=== PATIENT | male | born 1990 | race Caucasian/White ===

== ENCOUNTER 2024-08-04 07:12 | Outpatient (CLI) | payer OTHER ==
--- NOTE | 2024-08-06 09:14 | MRI Report ---
PROCEDURE: Shoulder RT WO INDICATIONS: SHOULDER PAIN TECHNIQUE: Noncontrast oblique coronal T2 fast spin echo with fat saturation, oblique sagittal T1 spin echo and T2 fast spin echo with fat saturation, axial T1 spin echo and T2 fast spin echo with fat saturation t hrough the shoulder. COMPARISON: None. FINDINGS: Image quality: Excellent. Rotator cuff: Low to moderate grade bursal surface partial-thickness tear involving distal supraspina tus at its insertion on humeral head is seen extending to musculotendinous junction. Low-grade articu lar surface partial-thickness tear involving distal infraspinatus at its insertion on humeral head is seen. The subscapularis tendon is thickened. No full-thickness rotator cuff tendon rupture No rotato r cuff muscle atrophy on sagittal images. Bones and bursae: No bone marrow contusions or fractures. Mild acromioclavicular joint osteoarthriti c changes are seen with joint space narrowing, subchondral sclerosis and small downward osteophyte fo rmation. Type I acromion, without an os acromiale. Small amount of subacromial subdeltoid bursal flui d is seen. Capsule and soft tissues: There is fraying of superior anterior glenoid labrum with subtle T2 hyperin tense signal concerning for subtle superior anterior labral tear. Similar signal abnormality and fray ing of anterior inferior labrum is also seen. The long head of the biceps tendon demonstrates normal location and morphology. The rotator interval appears normal, without fibrosis. The coracohumeral l igament is normal in thickness. IMPRESSION: 1. Low to moderate grade bursal surface partial-thickness tear involving distal supraspinatus extendi ng to musculotendinous junction. Low-grade articular surface partial-thickness tear involving distal infraspinatus. Distal subscapularis tendinosis. No full-thickness rotator cuff tendon rupture. 2. Mild acromioclavicular joint osteoarthritis. No fracture or dislocation. Small amount of subacromi al subdeltoid bursal fluid, no loose bodies. 3. Finding is concerning for subtle superior anterior right glenoid labral tear as well as anterior i nferior right glenoid labral tear. Reviewed by: Sandro Andrew MD on 08/06/2024 9:13 AM PDT Approved by: Sandro Andrew MD on 08/06/2024 9:13 AM PDT Station ID: [id number]
== END 2024-08-04 07:13 | disposition home or self-care (01) ==
LOC: DI 07:12
PROVIDERS: ATTEND Student in an Organized Health Care Education/Training Program
DX: M75.111 Incomplete rotator cuff tear or rupture of right shoulder, not specified as traumatic (principal); S46.811A Strain of other muscles, fascia and tendons at shoulder and upper arm level, right arm, initial encounter; M77.8 Other enthesopathies, not elsewhere classified; M19.011 Primary osteoarthritis, right shoulder; M25.411 Effusion, right shoulder